=== PATIENT | female | born 1975 | race Hispanic/Latino ===

== ENCOUNTER 2020-09-11 05:47 | Emergency (ER) | payer SELFPAY ==
[~2020-09-11] VITALS: Ht 160 cm; Wt 97.5 kg
[2020-09-11 06:03] VITALS: BP 185/97
[2020-09-11] MEDS ORDERED: MORPHINE 4 MG SYG IM SCH (06:15)
[2020-09-11] MEDS ORDERED: IBUP-2070 PO (07:17)
[2020-09-11 09:07] VITALS: BP 153/78
== END 2020-09-11 09:10 | disposition home or self-care (01) ==
LOC: EDH 05:47 → EDSEX 05:47 → EDH 09:10
DX: S82.831A Other fracture of upper and lower end of right fibula, initial encounter for closed fracture (principal); E11.9 Type 2 diabetes mellitus without complications; Z90.49 Acquired absence of other specified parts of digestive tract; X58.XXXA Exposure to other specified factors, initial encounter; Y93.89 Activity, other specified; Y92.89 Other specified places as the place of occurrence of the external cause; Y99.8 Other external cause status
CPT/HCPCS: 29515; 73610; 96372; 99283; J2270